=== PATIENT | female | born 1955 | race Caucasian/White ===

== ENCOUNTER 2024-06-20 13:10 | Outpatient (REF) | payer OTHER, SELFPAY ==
[2024-06-20 20:27] LABS: Abs Immature Grans 0.06 10^3/uL (0.0-0.06); Absolute Eosinophil Count 0.05 10^3/uL (0.0-0.7); Absolute Lymphocyte Count 2.17 10^3/uL (1.2-3.4); Absolute Monocyte Count 0.73 10^3/uL (0.1-0.8); Absolute Neutrophil Count 8.69 10^3/uL (1.2-6.7); Basophils % 0.3 %; Eosinophils % 0.4 %; HCT 33.2 % (36.0-46.0); Immature Grans % 0.5 %; Lymphocytes % 18.5 %; MCH 28.6 pg (27.0-33.0); MCHC 33.1 % (32.0-36.0); MCV 87 fL (80-95); MPV 10.1 fL (8.0-11.0); Monocytes % 6.2 %; Neutrophils % 74.1 %; Platelet Count 375 10^3/uL (130-400); RBC 3.84 10^6/uL (3.93-5.22); RDW 14.1 % (11.7-14.6); RDW-SD 44.1 fL; WBC 11.73 10^3/uL (4.4-10.8)
[2024-06-20 20:36] LABS: Absolute Basophil Count 0.04 10^3/uL (0.0-0.2)
[2024-06-20 20:58] LABS: ALT 14 U/L (14-59); AST 13 U/L (15-37); Alkaline Phosphatase 118 U/L (46-116); Anion Gap 8.8 mmol/L (3-11); BUN 16 mg/dL (7-18); Bilirubin, Total 0.58 mg/dL (0.2-1.0); CO2 30.2 mmol/L (21.0-32.0); CREATININE 0.7 mg/dL (0.55-1.02); Calcium 8.9 mg/dL (8.5-10.1); Chloride 104 mmol/L (98-107); Estimated GFR 92.98 (mL/min/1.73m2); Glucose 83 mg/dL (74-106); Potassium 3.6 mmol/L (3.5-5.1); Sodium 143 mmol/L (136-145); Total Protein 7.2 g/dL (6.4-8.2)
[2024-06-20 21:01] LABS: Folate > 20.0 ng/mL (8.6-20.0); Vitamin B12 > 2000 pg/mL (193-986)
[2024-06-21 12:38] LABS: Iron 33 ug/dL (50-170); Total Iron Binding Capacity 196 ug/dL (250-450); Transferrin Sat 17 % (15-50)
[2024-06-21 12:49] LABS: Ferritin 208 ng/mL (8-252)
[2024-06-22 09:44] LABS: Syphilis Serology (RPR) Negative (Negative)
== END 2024-06-20 13:11 | disposition home or self-care (01) ==
LOC: NCHCN 13:10
PROVIDERS: Visit Provider Physician Assistant
DX: R41.3 Other amnesia (principal); N39.0 Urinary tract infection, site not specified; D64.9 Anemia, unspecified; B96.29 Other Escherichia coli [E. coli] as the cause of diseases classified elsewhere
CPT/HCPCS: 80053; 87077; 82607; 82728; 82746; 83540; 83550; 84443; 85025; 86592; 87086; 87186

== ENCOUNTER 2025-02-15 16:23 | Outpatient (REF) | payer OTHER, SELFPAY ==
[2025-02-15 19:30] LABS: Abs Immature Grans 0.01 10^3/uL (0.0-0.06); HCT 38.3 % (36.0-46.0); HGB 12.4 g/dL (11.2-15.7); Immature Grans % 0.2 %; MCH 29.3 pg (27.0-33.0); MCHC 32.4 % (32.0-36.0); MCV 91 fL (80-95); MPV 10.6 fL (8.0-11.0); Platelet Count 276 10^3/uL (130-400); RBC 4.23 10^6/uL (3.93-5.22); RDW 13.7 % (11.7-14.6); RDW-SD 45.3 fL; WBC 6.21 10^3/uL (4.4-10.8)
[2025-02-15 19:42] LABS: Iron 34 ug/dL (50-170); Total Iron Binding Capacity 246 ug/dL (250-450); Transferrin Sat 14 % (15-50)
[2025-02-15 20:06] LABS: ALT 24 U/L (14-59); AST 19 U/L (15-37); Albumin 3.5 g/dL (3.4-5.0); Alkaline Phosphatase 47 U/L (46-116); Anion Gap 7.1 mmol/L (3-11); BUN 23 mg/dL (7-18); Bilirubin, Total 0.4 mg/dL (0.2-1.0); CO2 28.9 mmol/L (21.0-32.0); Calcium 9.2 mg/dL (8.5-10.1); Chloride 105 mmol/L (98-107); Estimated GFR 105.75 (mL/min/1.73m2); Ferritin 83 ng/mL (8-252); Glucose 95 mg/dL (74-106); Potassium 4.4 mmol/L (3.5-5.1); Sodium 141 mmol/L (136-145); TSH (W/Ref FT4) 1.49 uIU/mL (0.36-3.74); Total Protein 7.1 g/dL (6.4-8.2)
[2025-02-15 20:12] LABS: Folate > 20.0 ng/mL (8.6-20.0); Vitamin B12 > 2000 pg/mL (193-986)
[2025-02-21 17:42] LABS: 1,25-Dihydroxyvitamin D 74 pg/mL (18-78)
== END 2025-02-15 16:24 | disposition home or self-care (01) ==
LOC: NCHCN 16:23
PROVIDERS: Visit Provider Physician Assistant
DX: E61.1 Iron deficiency (principal); K90.9 Intestinal malabsorption, unspecified; R00.2 Palpitations
CPT/HCPCS: 80053; 82607; 82652; 82728; 82746; 83540; 83550; 84443; 85025

== ENCOUNTER 2025-03-26 19:00 | Outpatient (REF) | payer OTHER, SELFPAY ==
[2025-03-26 19:14] LABS: HCT 39.6 % (36.0-46.0); HGB 13.2 g/dL (11.2-15.7); MCH 30.0 pg (27.0-33.0); MCHC 33.3 % (32.0-36.0); MCV 90 fL (80-95); MPV 10.2 fL (8.0-11.0); Platelet Count 317 10^3/uL (130-400); RBC 4.40 10^6/uL (3.93-5.22); RDW 13.5 % (11.7-14.6); RDW-SD 44.9 fL; WBC 8.71 10^3/uL (4.4-10.8)
[2025-03-26 19:30] LABS: Iron 82 ug/dL (50-170); Total Iron Binding Capacity 280 ug/dL (250-425); Transferrin Sat 29 % (15-50)
[2025-03-26 19:33] LABS: Ferritin 66 ng/mL (7-271)
== END 2025-03-26 19:01 | disposition home or self-care (01) ==
LOC: NCHCN 19:00
PROVIDERS: Visit Provider Physician Assistant
DX: E61.1 Iron deficiency (principal)
CPT/HCPCS: 85027; 82728; 83540; 83550